=== PATIENT | female | born 1980 | race Hispanic/Latino ===

== ENCOUNTER 2018-02-15 14:39 | Emergency (ER) | payer BC ==
[~2018-02-15] VITALS: Ht 157.5 cm; Wt 106.6 kg
--- OUTSIDE RECORDS SUMMARY | 2018-02-15 14:41 | XMS REPORT | Clinical Summary ---
Author Author [facility] Address Unknown Phone Unavailable Care Team Providers Care Data Base Design Analyst Name Role Phone Maurice Chavis MD PCP Allergies No Known Allergies Current Medications Prescription Sig. Disp. Refills Start End Date Status Date norgestimate-ethinyl Take 1 tablet by mouth 84 tablet 3 01/12/2011/28 Active estradiol (ORTHO-CYCLEN) daily. 18 19 0.25-35 mg-mcg per tabletIndications: Abnormal uterine bleeding Active Problems Problem Noted Date Iron deficiency anemia due to chronic blood loss 02/12/2018 Iron deficiency anemia 01/08/2018 Encounters Date Type Specialty Care Team Description 02/13/2018 Transcribe Oncology Frantz De Los Santos MD Iron deficiency anemia, Orders unspecified iron deficiency anemia type (Primary Dx) 02/12/2018 Office Visit Oncology Frantz De Los Santos MD Iron deficiency anemia due to chronic blood loss (Primary Dx) 01/30/2018 Telephone Obstetrics and Gynecology Beverley Montenegro RN 01/29/2018 Office Visit Obstetrics and Gynecology Cindy Daniels Abnormal uterine bleeding MD Mis (Primary Dx); Cyst of left ovary 01/19/2018 Office Visit Obstetrics and Gynecology Cindy Daniels Abnormal uterine bleeding MD Mis (Primary Dx); Cyst of left ovary 01/18/2018 Ancillary Obstetrics and Gynecology Cindy Daniels Abnormal uterine bleeding Procedure MD Mis 01/11/2018 Office Visit Obstetrics and Gynecology Cindy Daniels Abnormal uterine bleeding MD Mis (Primary Dx); Iron deficiency anemia, unspecified iron deficiency anemia type 01/10/2018 Telephone Obstetrics and Gynecology Beverley Montenegro, ISELA Menorrhagia with irregular cycle (Primary Dx); Anemia, unspecified type 01/03/2018 Office Visit Obstetrics and Gynecology Cindy Daniels MD (Department/Provider) 01/03/2018 Orders Only Obstetrics and Gynecology Calvin Austin MA Menorrhagia with regular cycle (Primary Dx) after 02/14/2017 Family History Medical History Relation Name Comments Diabetes Mother Hypertension Mother Lung cancer Paternal Grandfather Relation Name Status Comments Mother Paternal Grandfather Social History Tobacco Use Types Packs/Day Years Used Date Never Smoker Smokeless Tobacco: Never Used Alcohol Use Drinks/Week oz/Week Comments No Sex Assigned at Date Recorded Not on file Last Filed Vital Signs Vital Sign Reading Time Taken Blood Pressure 130/70 02/12/2018 1:09 PM CDT Pulse 82 02/12/2018 1:09 PM CDT Temperature 36.6 C (97.9 F) 02/12/2018 1:09 PM CDT Respiratory Rate - - Oxygen Saturation - - Inhaled Oxygen - - Concentration Weight 118 kg (261 lb 3.2 oz) 02/12/2018 1:09 PM CDT Height 162.6 cm (5' 4") 02/12/2018 1:09 PM CDT Body Mass Index 44.83 02/12/2018 1:09 PM CDT Plan of Treatment Date Type Specialty Care Team Description 02/19/2018 Infusion Oncology Frantz De Los Santos MD [address] [place] [id number] 02/21/2018 Infusion Oncology Frantz De Los Santos MD [address] [place] [phone] 02/23/2018 Infusion Oncology Frantz De Los Santos MD [address] [facility] [address] [place] [id number] 02/26/2018 Infusion Oncology Frantz De Los Santos MD [address] [place] [id number] 02/28/2018 Infusion Oncology Frantz De Los Santos MD [address] [facility] [address] [place] [id number] 03/02/2018 Infusion Oncology Frantz De Los Santos MD [address] [facility] [address] [place] [phone] 03/05/2018 Infusion Oncology Frantz De Los Santos MD [address] [place] [address] [place] [phone] 03/07/2018 Infusion Oncology Frantz De Los Santos MD [address] [facility] [address] [place] [address] 05/15/2018 Office Visit Oncology Frantz De Los Santos MD [address] [facility] [address] [place] [address] Health Maintenance Due Date Last Done Comments CERVICAL CANCER SCREENING 2002 INFLUENZA VACCINE 04/11/2018 Results * CBC with platelet and differential (01/29/2018 2:39 PM) Only the most recent of 2 results within the time period is included. Component Value Ref Range WBC 7.3 3.8 - 10.8 Thousand/uL RBC 4.03 3.80 - 5.10 Million/uL HGB 8.2 (L) 11.7 - 15.5 g/dL HCT 28.1 (L) 35.0 - 45.0 % MCV 69.7 (L) 80.0 - 100.0 fL MCH 20.3 (L) 27.0 - 33.0 pg MCHC 29.2 (L) 32.0 - 36.0 g/dL RDW 16.3 (H) 11.0 - 15.0 % Platelet count 304 140 - 400 Thousand/uL MPV 10.5 7.5 - 12.5 fL Neutrophils, absolute 5,563 1,500 - 7,800 cells/uL Lymphocytes, absolute 1,102 850 - 3,900 cells/uL Monocytes, absolute 489 200 - 950 cells/uL Eosinophils, absolute 117 15 - 500 cells/uL Basophils, absolute 29 0 - 200 cells/uL Neutrophils 76.2 % Lymphocytes 15.1 % Monocytes 6.7 % Eosinophils 1.6 % Basophils + RC 0.4 % Nucleated RBC Comment: Review of peripheral smear confirms automated results. Specimen Performing Laboratory [facility] * Cancer antigen 125 (01/29/2018 2:39 PM) Component Value Ref Range CA 125 11 <35 U/mL Comment: This test was performed using the Rufino Desiree Chemiluminescent method. Values obtained from different assay methods cannot be used interchangeably. CA 125 levels, regardless of value, should not be interpreted as absolute evidence of the presence or absence of disease. Specimen Performing Laboratory [facility] * Carcinoembryonic antigen (CEA) (01/29/2018 2:39 PM) Component Value Ref Range CEA <0.5 See Note: ng/mL Comment: Reference Range: Non-Smoker: <2.5 Smoker: <5.0 This test was performed using the Siemens chemiluminescent method. Values obtained from different assay methods cannot be used interchangeably. CEA levels, regardless of value, should not be interpreted as absolute evidence of the presence or absence of disease. Specimen Performing Laboratory [facility] * TISSUE, SPECIMEN A (01/19/2018 12:01 PM) Component Value Ref Range Source Comment: Endometrium Procedure Comment: Biopsy Gross description: Comment: EMB, received in formalin, verified as to the patient's name and consists of multiple fragments of dark red blood clots and mcallister soft tissue forming a loose aggregate measuring 2.8 x 2.5 x 0.5 cm. TS, one block(s). DT 01/21/2018 Gross exam(s) performed at: [address] [id number] Stud Setter: SCARLETT BAUM MD Micro description Comment: Microscopic examination supports the above diagnosis. Diagnosis Comment: Benign proliferative endometrium. No hyperplasia or carcinoma is seen. Specimen Performing Laboratory [facility] * Surgical pathology request (01/19/2018 12:01 PM) Component Value Ref Range Clinical information Comment: Abnormal uterine bleeding, anemia, ovarian cyst Pathologist Comment: Manfred Baca MD, Board Certified in Anatomic Pathology [phone] (electronic signature) Specimen Performing Laboratory [facility] * POC , urine (01/19/2018 11:22 AM) Component Value Ref Range test urine, POC Negative QC done No Specimen Performing Laboratory Urine * US Pelvis Complete (AMB In-Clinic ONLY) (01/18/2018 11:25 AM) Specimen Performing Laboratory [facility] [address] [place] [id number] Narrative Uterus: 9cm Endometrium: 6mm Right Ovary: Not visible Left Ovary: 5.5cm 4.9cm septated cyst Bilateral adnexa normal. * Partial thromboplastin time, activated (01/03/2018 3:44 PM) Component Value Ref Range PTT 25 22 - 34 sec Comment: This test has not been validated for monitoring unfractionated heparin therapy. For testing that is validated for this type of therapy, please refer to the Heparin Anti-Xa assay (test code 33427). For additional information, please refer to http://education.[employer]/faq/CAF235 (This link is being provided for informational/educational purposes only.) Specimen Performing Laboratory [facility] * Prothrombin time with INR (01/03/2018 3:44 PM) Component Value Ref Range INR 1.0 Comment: Reference Range 0.9-1.1 Moderate-intensity Warfarin Therapy 2.0-3.0 Higher-intensity Warfarin Therapy 3.0-4.0 Prothrombin time 10.1 9.0 - 11.5 sec Comment: For more information on this test, go to: http://[employer]ise/faq/FAV781 Specimen Performing Laboratory [facility] * Thyroid stimulating hormone (01/03/2018 3:44 PM) Component Value Ref Range TSH 3.75 mIU/L Comment: Reference Range > or=20 Years 0.40-4.50 Ranges First trimester 0.26-2.66 Second trimester 0.55-2.73 Third trimester 0.43-2.91 Specimen Performing Laboratory [facility] * T4, free (01/03/2018 3:44 PM) Component Value Ref Range T4, free 1.0 0.8 - 1.8 ng/dL Specimen Performing Laboratory [facility] after 02/14/2017 Insurance Payer Benefit Subscriber ID Type Phone Address Plan / Group BCBS BCBS xxxxxxxxxxxx PPO CHOICE PPO/HARVEY ALEGRE
[2018-02-15] MEDS ORDERED: KETOROLAC TROMETHAMINE 30 MG/ML VIAL IV STA (15:40)
[2018-02-15] MEDS ORDERED: SODIUM CHLORIDE 0.9% 1000ML 1,000 ML IV STA (15:40)
[2018-02-15] MEDS ORDERED: METOCLOPRAMIDE HCL 10 MG/2ML VIAL IV ONE (15:45)
[2018-02-15] MEDS ORDERED: DIPHENHYDRAMINE HCL INJ 50 MG/ML VIAL IV ONE (15:45)
[2018-02-15 15:56] LABS: BASOPHILS % 0.2 % (0.0-1.0); EOSINOPHILS # (AUTO) 0.1 (0.0-0.4); EOSINOPHILS % 1.3 % (0.0-6.0); HEMATOCRIT 30.8 % (34.2-44.1); HEMOGLOBIN 8.9 g/dL (12.0-16.0); LYMPHOCYTES # (AUTO) 1.2 (1.0-3.2); LYMPHOCYTES % 14.4 % (18.0-39.1); MEAN CORPUSCULAR HEMOGLOBIN 20.6 pg (28-32); MEAN CORPUSCULAR HGB CONC 28.9 g/dL (31-35); MEAN CORPUSCULAR VOLUME 71.5 fL (81-99); MONOCYTES # (AUTO) 0.6 (0.2-0.8); MONOCYTES % 7.3 % (4.4-11.3); NEUTROPHILS # (AUTO) 6.3 (2.1-6.9); NEUTROPHILS % 76.3 % (38.7-80.0); PLATELET COUNT 270 x10e3/uL (140-360); RED BLOOD COUNT 4.31 x10e6/uL (3.6-5.1); RED CELL DISTRIBUTION WIDTH 16.7 % (11.7-14.4)
--- NOTE | 2018-02-15 15:59 | Diagnostic Imaging Report ---
Exams: Head and maxillofacial sinus CTs without IV contrast History: Headache, sinus pressure Comparison studies: None Technique: Axial images were obtained to the vertex and maxillofacial region. Coronal and sagittal images reconstructed from the axial data. Intravenous contrast: None Findings: Scalp: No abnormalities. Bones: No fractures, blastic or lytic lesions. Brain sulci: Appropriate for age. Ventricles: Normal in size and configuration. No hydrocephalus. Parenchyma: No gross abnormalities in the inferior posterior fossa and inferior frontal lobes which are somewhat limited by motion artifacts and streak artifact at the skull base. No abnormal densities, masses, acute hemorrhage or acute or chronic cortical vascular insults in the remaining brain. Sellar/suprasellar region: No abnormalities Craniocervical junction: Patent foramen magnum. No Chiari one malformation. Maxillofacial CT: Soft tissues: No abnormalities. Bones: No fractures or bony abnormalities. Orbits: Globes: Intact Extra or intraconal abnormalities: None. Paranasal sinuses: Retention cyst or polyp in the right maxillary sinus with partially opacified bilateral middle ethmoid air cells. The remaining sinuses are clear. No sinus fluid level. The bilateral frontoethmoidal recesses, ostiomeatal units and sphenoethmoidal recess ease are patent. There is an incidental Linnea cell on the right. Nasal cavity: Right nasal septal deviation with rightward projecting osseous spur at the level the right middle and inferior turbinates which extends inferiorly to about the right inferior turbinate. Anatomical variant left middle turbinate lori bullosa. Dentition: No periapical lucencies. There are multiple dental fillings with through canal changes at the left second maxillary premolar. There are unerupted maxillary teeth posterior to the medial incisors which extend into the hard palate. Incidental findings: Opacified left mastoid air cells which are also pneumatized with sclerotic changes as sequela of chronic inflammation. IMPRESSION: Head CT: No intracranial abnormalities. Maxillofacial CT: Nonobstructing right sphenoid sinus polyp or retention cyst with mild inflammatory changes in the bilateral middle ethmoid ethmoids. Remaining sinuses are clear. Patent sinus drainage pathways. No sinus fluid level. Signed by: Dr. Dominic Corrigan M.D. on 02/15/2018 3:56 PM
[2018-02-15 16:13] LABS: ALANINE AMINOTRANSFERASE 21 IU/L (0-55); ALBUMIN 3.6 g/dL (3.5-5.0); ALBUMIN/GLOBULIN RATIO 0.9 (0.8-2.0); ALKALINE PHOSPHATASE 120 IU/L (40-150); ANION GAP 10.9 mmol/L (8-16); BLOOD UREA NITROGEN 9 mg/dL (7-26); BUN/CREATININE RATIO 12 (6-25); CALCIUM 9.6 mg/dL (8.4-10.2); CARBON DIOXIDE 27 mmol/L (22-29); CHLORIDE 103 mmol/L (98-107); CREATININE, SERUM 0.77 mg/dL (0.57-1.11); EST GLOMERULAR FILTRATION RATE > 60 ML/MIN (60-); GLUCOSE 100 mg/dL (74-118); POTASSIUM 3.9 mmol/L (3.5-5.1); SODIUM 137 mmol/L (136-145)
== END 2018-02-15 17:00 | disposition home or self-care (01) ==
LOC: ER 14:39
DX: G44.89 Other headache syndrome (principal); J01.30 Acute sphenoidal sinusitis, unspecified
CPT/HCPCS: 36415; 70450; 70486; 80053; 84702; 85025; 99284; J1200; J1885; J2765; J7030

== ENCOUNTER 2021-01-28 09:18 | Emergency (ER) | payer BC ==
[~2021-01-28] VITALS: Ht 170.2 cm; Wt 99.8 kg
[2021-01-28] MEDS ORDERED: SODIUM CHLORIDE 0.9% 250ML 250 ML IV ONE (09:30)
[2021-01-28 10:10] LABS: BASOPHILS % 0.6 % (0.0-1.0); EOSINOPHILS # (AUTO) 0.1 (0.0-0.4); EOSINOPHILS % 1.9 % (0.0-6.0); HEMATOCRIT 24.7 % (34.2-44.1); LYMPHOCYTES # (AUTO) 0.8 (1.0-3.2); LYMPHOCYTES % 16.5 % (18.0-39.1); MEAN CORPUSCULAR HEMOGLOBIN 18.1 pg (28-32); MEAN CORPUSCULAR HGB CONC 26.3 g/dL (31-35); MEAN CORPUSCULAR VOLUME 68.6 fL (81-99); MONOCYTES # (AUTO) 0.3 (0.2-0.8); MONOCYTES % 6.4 % (4.4-11.3); NEUTROPHILS # (AUTO) 3.5 (2.1-6.9); PLATELET COUNT 275 x10e3/uL (140-360); RED CELL DISTRIBUTION WIDTH 18.3 % (11.7-14.4)
[2021-01-28 10:13] LABS: HEMOGLOBIN 6.5 g/dL (12.0-16.0)
[2021-01-28 10:30] LABS: ALANINE AMINOTRANSFERASE 16 IU/L (0-55); ALBUMIN 3.8 g/dL (3.5-5.0); ALKALINE PHOSPHATASE 88 IU/L (40-150); ANION GAP 14.8 mmol/L (8-16); BLOOD UREA NITROGEN 9 mg/dL (7-26); BUN/CREATININE RATIO 12 (6-25); CALCIUM 8.9 mg/dL (8.4-10.2); CARBON DIOXIDE 25 mmol/L (22-29); CHLORIDE 104 mmol/L (98-107); CREATININE, SERUM 0.78 mg/dL (0.57-1.11); EST GLOMERULAR FILTRATION RATE > 60 ML/MIN (60-); GLUCOSE 96 mg/dL (74-118); POTASSIUM 3.8 mmol/L (3.5-5.1); SODIUM 140 mmol/L (136-145)
[2021-01-28 10:35] LABS: HYPOCHROMASIA MODERATE; MICROCYTOSIS SLIGHT
[2021-01-28 10:36] LABS: OVALOCYTES FEW; POIKILOCYTOSIS SLIGHT
[2021-01-28 10:38] LABS: ANISOCYTOSIS SLIGHT; PLATELET ESTIMATE ADEQUATE; PLATELET MORPHOLOGY COMMENT NORMAL; RBC MORPHOLOGY COMMENT ABNORMAL
[2021-01-28 16:54] VITALS: BP 131/72
== END 2021-01-28 17:05 | disposition home or self-care (01) ==
LOC: ER 09:45
DX: D64.9 Anemia, unspecified (principal)
CPT/HCPCS: 36415; 80053; 81025; 85025; 86850; 86900; 86920; 99284; J7050; P9016